=== PATIENT | male | born 1960 | race Caucasian/White ===

== ENCOUNTER 2018-02-10 15:10 | Inpatient (IN) | payer OTHER ==
[~2018-02-10] VITALS: Ht 177.8 cm; Wt 84.3 kg
[~2018-02-10 15:10] MED LIST: BUSPAR10 MG PO; BUSPAR5 MG PO; CHLORDIAZEPOXID25 MG PO; FOLIC ACID1 MG PO; METOPROLOL TART25 MG PO; PAXIL30 MG PO; PREVACID30 MG PO; VITAMIN B-1100 MG PO
[2018-02-10 15:52] LABS: HEMATOCRIT 36.7 % (38.0-50.0); HEMOGLOBIN 12.2 G/DL (12.5-16.6); MCH 34.7 PG (29.0-34.0); MCHC 33.2 G/DL (30.0-36.0); MCV 104.3 FL (86-99); PLATELET COUNT 766 K/uL (156-360); RBC DIS.WIDTH-CV 12.8 % (11.8-14.6); RBC DIS.WIDTH-SD 49.5 % (39-53); RED BLOOD COUNT 3.52 M/uL (4.00-5.50); WHITE BLOOD COUNT 19.7 K/uL (4.1-10.2)
[2018-02-10 16:03] LABS: CHLORIDE 100 mEq/L (99-109); SODIUM 140 mEq/L (136-147)
[2018-02-10 16:05] LABS: GLUCOSE 131 mg/dL (70-99)
[2018-02-10 16:06] LABS: APPEARANCE SL.HAZY ((CLEAR)); BILIRUBIN NEGATIVE; BLOOD NEGATIVE; COLOR YELLOW ((YELLOW)); GLUCOSE (STRIP) NEGATIVE; KETONES NEGATIVE; LEUKOCYTES NEGATIVE; NITRITE NEGATIVE; PROTEIN (STRIP) 30; SPECIFIC GRAVITY 1.016 (1.000-1.030); UROBILINOGEN 0.2 MG/DL (0.2-1.0)
[2018-02-10 16:09] LABS: CREATININE 2.2 mg/dL (0.6-1.3); GFR ESTIMATE (CALCULATED) 33 mL/min/ (58.99-99999); UREA NITROGEN (BUN) 56 mg/dL (9-23)
[2018-02-10 16:12] LABS: BACTERIA NONE SEEN /HPF; CALCIUM OXALATE CRYSTALS 1+ /HPF; EPITHELIAL CELLS RARE /HPF; MUCUS NONE SEEN /LPF; RED BLOOD CELLS 0-5 /HPF (0-5); UCUL ADDED? NO; WHITE BLOOD CELLS 0-5 /HPF (0-5)
[2018-02-10 17:10] LABS: SERUM ETHYL ALCOHOL < 10 mg/dL
[2018-02-10 17:13] LABS: LIPASE 112 U/L (1.0-51.0)
[2018-02-10] MEDS ORDERED: LOVASTATIN40 MG PO (17:33)
[2018-02-10] MEDS ORDERED: OMEPRAZOLE20 MG PO (17:34)
[2018-02-10] MEDS ORDERED: PAROXETINE HCL40 MG PO (17:34)
[2018-02-10] MEDS ORDERED: LIBRIUM25 MG PO (17:36)
[2018-02-10 19:20] LABS: ALBUMIN 3.6 g/dL (3.2-4.8)
[2018-02-10 19:21] LABS: MAGNESIUM 1.6 mg/dL (1.3-2.7)
[2018-02-10 19:23] LABS: TOTAL PROTEIN 8.4 g/dL (6.4-8.3)
[2018-02-10 19:24] LABS: TOTAL BILIRUBIN 0.6 mg/dL (0.0-1.0)
[2018-02-10 19:26] LABS: ALKALINE PHOSPHATASE 116 IU/L (3-129); PHOSPHORUS 4.5 mg/dL (2.5-4.9)
[2018-02-10 19:28] LABS: AST (GOT) 29 IU/L (2-34); DIRECT BILIRUBIN 0.4 mg/dL (0.0-0.3)
[2018-02-10 19:29] LABS: ALT (GPT) 24 IU/L (3-49)
[2018-02-10 21:26] VITALS: BP 162/104
[2018-02-11] VITALS (7 sets, daily range): BP systolic 134–168; BP diastolic 87–107
[2018-02-11 06:53] LABS: HEMATOCRIT 30.7 % (38.0-50.0); MCH 33.7 PG (29.0-34.0); MCHC 31.6 G/DL (30.0-36.0); MCV 106.6 FL (86-99); PLATELET COUNT 631 K/uL (156-360); RBC DIS.WIDTH-CV 12.9 % (11.8-14.6); RBC DIS.WIDTH-SD 50.9 % (39-53); RED BLOOD COUNT 2.88 M/uL (4.00-5.50); WHITE BLOOD COUNT 14.4 K/uL (4.1-10.2)
[2018-02-11 06:55] LABS: HEMOGLOBIN 9.7 G/DL (12.5-16.6)
[2018-02-11 06:56] LABS: ALBUMIN 2.7 G/DL (3.2-4.8); ALKALINE PHOSPHATASE 76 IU/L (3-129); ALT (GPT) 18 IU/L (3-49); AST (GOT) 20 IU/L (2-34); CHLORIDE 111 MEQ/L (99-109); GLUCOSE 123 mg/dL (70-99); POTASSIUM 5.2 MEQ/L (3.7-5.4); SODIUM 145 MEQ/L (136-147); TOTAL BILIRUBIN 0.5 MG/DL (0.0-1.0); UREA NITROGEN (BUN) 38 mg/dL (9-23)
[2018-02-11 07:03] LABS: CREATININE 1.6 MG/DL (0.6-1.3); GFR ESTIMATE (CALCULATED) 48 mL/min/ (58.99-99999)
[2018-02-12 04:00] VITALS: BP 134/60
[2018-02-12 06:21] LABS: BASOPHIL (%) 0.7 % (0-1); BASOPHIL COUNT 0.1 K/uL (0-0.1); EOSINOPHIL (%) 0 % (0-5); HEMATOCRIT 32.8 % (38.0-50.0); HEMOGLOBIN 10.5 G/DL (12.5-16.6); LYMPHOCYTE (%) 8.6 % (15-42); LYMPHOCYTE COUNT 1.3 K/uL (1.0-2.8); MCH 34.7 PG (29.0-34.0); MCV 108.3 FL (86-99); MONOCYTE COUNT 1.2 K/uL (0-0.8); NEUTROPHIL (%) 81.7 % (45-76); NEUTROPHIL COUNT 12.4 K/uL (1.8-6.4); PLATELET COUNT 662 K/uL (156-360); RBC DIS.WIDTH-SD 51.7 % (39-53); RED BLOOD COUNT 3.03 M/uL (4.00-5.50); WHITE BLOOD COUNT 15.1 K/uL (4.1-10.2)
[2018-02-12 06:46] LABS: CHLORIDE 110 MEQ/L (99-109); CREATININE 1.5 MG/DL (0.6-1.3); GFR ESTIMATE (CALCULATED) 52 mL/min/ (58.99-99999); GLUCOSE 115 mg/dL (70-99); POTASSIUM 5.3 MEQ/L (3.7-5.4); SODIUM 143 MEQ/L (136-147); UREA NITROGEN (BUN) 27 mg/dL (9-23)
[2018-02-12 07:40] VITALS: BP 171/94
[2018-02-12 11:49] VITALS: BP 149/94
[2018-02-12 14:24] VITALS: BP 126/90
[2018-02-12 15:51] VITALS: BP 147/96
[2018-02-12 19:54] VITALS: BP 148/90
[2018-02-13 00:06] VITALS: BP 159/95
[2018-02-13 04:05] VITALS: BP 140/98
[2018-02-13 06:05] LABS: BASOPHIL (%) 0.6 % (0-1); BASOPHIL COUNT 0.1 K/uL (0-0.1); EOSINOPHIL (%) 0 % (0-5); HEMATOCRIT 31.5 % (38.0-50.0); HEMOGLOBIN 10.2 G/DL (12.5-16.6); LYMPHOCYTE (%) 9.3 % (15-42); LYMPHOCYTE COUNT 1.3 K/uL (1.0-2.8); MCH 34.2 PG (29.0-34.0); MCHC 32.4 G/DL (30.0-36.0); MCV 105.7 FL (86-99); MONOCYTE (%) 8.3 % (3-12); MONOCYTE COUNT 1.2 K/uL (0-0.8); NEUTROPHIL (%) 80.8 % (45-76); NEUTROPHIL COUNT 11.5 K/uL (1.8-6.4); PLATELET COUNT 684 K/uL (156-360); RBC DIS.WIDTH-CV 12.7 % (11.8-14.6); RBC DIS.WIDTH-SD 49.4 % (39-53); RED BLOOD COUNT 2.98 M/uL (4.00-5.50); WHITE BLOOD COUNT 14.2 K/uL (4.1-10.2)
[2018-02-13 06:28] LABS: ALBUMIN 2.8 G/DL (3.2-4.8); ALKALINE PHOSPHATASE 72 IU/L (3-129); ALT (GPT) 17 IU/L (3-49); AST (GOT) 21 IU/L (2-34); DIRECT BILIRUBIN 0.2 mg/dL (0.0-0.3); TOTAL BILIRUBIN 0.5 MG/DL (0.0-1.0); TOTAL PROTEIN 6.2 G/DL (6.4-8.3)
[2018-02-13 07:44] VITALS: BP 156/80
[2018-02-13 12:29] VITALS: BP 138/85
[2018-02-13 16:00] VITALS: BP 128/67
[2018-02-13 20:20] VITALS: BP 126/82
[2018-02-14 00:36] VITALS: BP 130/86
[2018-02-14 04:00] VITALS: BP 135/82
[2018-02-14 06:07] LABS: BASOPHIL (%) 0.9 % (0-1); BASOPHIL COUNT 0.1 K/uL (0-0.1); EOSINOPHIL (%) 0 % (0-5); HEMATOCRIT 31.8 % (38.0-50.0); LYMPHOCYTE (%) 11.5 % (15-42); LYMPHOCYTE COUNT 1.5 K/uL (1.0-2.8); MCH 33.6 PG (29.0-34.0); MCHC 31.4 G/DL (30.0-36.0); MCV 106.7 FL (86-99); MONOCYTE (%) 8.1 % (3-12); NEUTROPHIL (%) 78.5 % (45-76); NEUTROPHIL COUNT 10.1 K/uL (1.8-6.4); PLATELET COUNT 660 K/uL (156-360); RBC DIS.WIDTH-CV 12.9 % (11.8-14.6); RBC DIS.WIDTH-SD 50.4 % (39-53); RED BLOOD COUNT 2.98 M/uL (4.00-5.50); WHITE BLOOD COUNT 12.9 K/uL (4.1-10.2)
[2018-02-14 06:26] LABS: CHLORIDE 107 MEQ/L (99-109); CREATININE 1.3 MG/DL (0.6-1.3); GFR ESTIMATE (CALCULATED) > 59 mL/min/ (58.99-99999); GLUCOSE 107 mg/dL (70-99); SODIUM 144 MEQ/L (136-147); UREA NITROGEN (BUN) 24 mg/dL (9-23)
[2018-02-14 07:41] VITALS: BP 112/80
[2018-02-14 13:13] LABS: FOLIC ACID (FOLATE) 12.1 NG/ML (5.0-22.0)
[2018-02-14 15:36] VITALS: BP 132/90
[2018-02-14 20:00] VITALS: BP 119/80
[2018-02-15] VITALS: BP 153/90
[2018-02-15 04:00] VITALS: BP 134/89
[2018-02-15 07:48] VITALS: BP 136/80
[2018-02-15 11:37] LABS: HEMATOCRIT 31.2 % (38.0-50.0); MCH 33.8 PG (29.0-34.0); MCHC 32.1 G/DL (30.0-36.0); MCV 105.4 FL (86-99); NRBC (%) 0.2 /100 WBC (0-0); PLATELET COUNT 659 K/uL (156-360); RBC DIS.WIDTH-CV 12.9 % (11.8-14.6); RBC DIS.WIDTH-SD 50.2 % (39-53); RED BLOOD COUNT 2.96 M/uL (4.00-5.50); WHITE BLOOD COUNT 12.8 K/uL (4.1-10.2)
[2018-02-15 11:47] VITALS: BP 129/83
[2018-02-15 12:09] LABS: CHLORIDE 106 MEQ/L (99-109); CREATININE 1.2 MG/DL (0.6-1.3); GFR ESTIMATE (CALCULATED) > 59 mL/min/ (58.99-99999); GLUCOSE 123 mg/dL (70-99); POTASSIUM 4.8 MEQ/L (3.7-5.4); SODIUM 141 MEQ/L (136-147); UREA NITROGEN (BUN) 21 mg/dL (9-23)
[2018-02-15 16:04] VITALS: BP 142/85
[2018-02-15 19:37] VITALS: BP 138/67
[2018-02-16 00:22] VITALS: BP 113/84
[2018-02-16 03:49] VITALS: BP 110/86
[2018-02-16 06:21] LABS: BASOPHIL (%) 1.1 % (0-1); BASOPHIL COUNT 0.1 K/uL (0-0.1); EOSINOPHIL (%) 0 % (0-5); HEMATOCRIT 30.3 % (38.0-50.0); HEMOGLOBIN 9.8 G/DL (12.5-16.6); IMMATURE GRANULOCYTE (%) 1.1 % (0.0-0.7); LYMPHOCYTE (%) 12.1 % (15-42); LYMPHOCYTE COUNT 1.3 K/uL (1.0-2.8); MCH 34.5 PG (29.0-34.0); MCHC 32.3 G/DL (30.0-36.0); MCV 106.7 FL (86-99); MONOCYTE (%) 8.9 % (3-12); NEUTROPHIL (%) 76.8 % (45-76); NEUTROPHIL COUNT 8.5 K/uL (1.8-6.4); PLATELET COUNT 625 K/uL (156-360); RBC DIS.WIDTH-CV 12.9 % (11.8-14.6); RBC DIS.WIDTH-SD 50.4 % (39-53); RED BLOOD COUNT 2.84 M/uL (4.00-5.50)
[2018-02-16 06:47] LABS: CHLORIDE 104 MEQ/L (99-109); CREATININE 1.2 MG/DL (0.6-1.3); GFR ESTIMATE (CALCULATED) > 59 mL/min/ (58.99-99999); GLUCOSE 112 mg/dL (70-99); POTASSIUM 4.6 MEQ/L (3.7-5.4); SODIUM 137 MEQ/L (136-147); UREA NITROGEN (BUN) 22 mg/dL (9-23)
[2018-02-16 07:57] VITALS: BP 158/85
[2018-02-16 12:10] VITALS: BP 125/86
[2018-02-16 16:22] VITALS: BP 136/86
[2018-02-16 19:10] VITALS: BP 136/72
[2018-02-17] VITALS: BP 141/77
[2018-02-17 03:34] VITALS: BP 123/86
[2018-02-17 07:53] VITALS: BP 158/98
[2018-02-17 11:42] VITALS: BP 114/73
[2018-02-17] MEDS ORDERED: QUETIAPINE FUMA50 MG PO (12:22)
[2018-02-17] MEDS ORDERED: ASPIR-LOW81 MG PO (12:22)
[2018-02-17] MEDS ORDERED: LOPRESSOR25 MG PO (12:22)
[2018-02-17] MEDS ORDERED: LORATADINE10 M2 PO (12:22)
[2018-02-17] MEDS ORDERED: THERAGRAN1 TABLET PO (12:23)
[2018-02-17] MEDS ORDERED: THIAMINE HCL100 MG PO (12:23)
[2018-02-17] MEDS ORDERED: FOLIC ACID1 MG PO (12:23)
[2018-02-17] MEDS ORDERED: BUSPAR5 MG PO (12:24)
[2018-02-17] MEDS ORDERED: FLONASE16 G1 BOTH NARES (12:24)
[2018-02-17] MEDS ORDERED: LIBRIUM25 MG PO (14:59)
== END 2018-02-17 16:11 | DRG 683 ==
LOC: EME 15:10 → 5SOUTH 18:10 → EDOF 18:10 → 5SOUTH 18:10 → ENRESERV 18:17 → 5SOUTH 20:45
PROVIDERS: Hospitalist; Internal Medicine; Physician Assistant
DX: N17.9 Acute kidney failure, unspecified (principal); F10.239 Alcohol dependence with withdrawal, unspecified; F10.231 Alcohol dependence with withdrawal delirium; E87.5 Hyperkalemia; E86.0 Dehydration; Y90.0 Blood alcohol level of less than 20 mg/100 ml; I10 Essential (primary) hypertension; F31.9 Bipolar disorder, unspecified; F17.210 Nicotine dependence, cigarettes, uncomplicated; D72.829 Elevated white blood cell count, unspecified; F12.10 Cannabis abuse, uncomplicated; Z60.2 Problems related to living alone; R23.2 Flushing; D64.9 Anemia, unspecified; F41.9 Anxiety disorder, unspecified; R44.1 Visual hallucinations; Z56.0 Unemployment, unspecified; Z73.6 Limitation of activities due to disability
CPT/HCPCS: 70450; 70551; 71046; 80048; 80053; 80076; 81003; 82140; 82607; 82746; 82948; 83690; 83735; 84100; 84132 91; 85025; 85027; 87040; 93005; 94760; 94799; 97530 GP; 99281; 99285; G0480; J1644; J2060; J3411; J3420; J7030; J7040; J7042; J7050